=== PATIENT | male | born 1995 | race African-American/Black ===

== ENCOUNTER 2021-01-19 22:59 | Inpatient (IN) | payer OTHER ==
[~2021-01-19] VITALS: Ht 182.9 cm; Wt 99.2 kg
[2021-01-20] MEDS ORDERED: MOM 30ML SUSPENSION UDC PO PRN (00:25)
[2021-01-20] MEDS ORDERED: MAALOX 30 ML SUSP *UDC PO PRN (00:25)
[2021-01-20] MEDS ORDERED: traZODone 50 MG TAB PO PRN (00:25)
[2021-01-20] MEDS ORDERED: ACETAMINOPHEN TAB 650MG DOSE (2X325MG) PO PRN (00:25)
[2021-01-20 01:12] LABS: RSV AMPLIFICATION NEGATIVE (NEGATIVE)
[2021-01-20 05:21] VITALS: BP 135/90
[2021-01-20] MEDS ORDERED: LUNE2TAB23 PO (05:40)
[2021-01-20] MEDS ORDERED: ZOLO50TA PO (05:40)
[2021-01-20] MEDS ORDERED: ESZO1TAB4 PO (08:13)
[2021-01-20] MEDS ORDERED: HOME MED LIST COMPLETE! XX SCH (08:15)
[2021-01-20] MEDS ORDERED: PROPRANOLOL 10 MG TAB PO PRN (11:15)
[2021-01-20] MEDS: NICOTINE 14 MG/24 HR TRANSDERMAL TD PRN (11:48)
[2021-01-20] MEDS: SERTRALINE 100 MG TAB PO SCH (11:49)
[2021-01-20] MEDS: busPIRone 5 MG TAB PO SCH ×2 (11:49→21:47)
[2021-01-20] MEDS: MULTIVITAMINS/MINERALS THERAP 1 TAB PO SCH (15:50)
[2021-01-20] MEDS: FOLIC ACID 1 MG TAB PO SCH (15:51)
[2021-01-20] MEDS: THIAMINE 100 MG TAB PO SCH (15:52)
[2021-01-20 17:23] VITALS: BP 138/79
[2021-01-20] MEDS: PRAZOSIN 1 MG CAP PO SCH (21:47)
[2021-01-21 06:30] VITALS: BP 132/63
[2021-01-21] MEDS: busPIRone 5 MG TAB PO SCH ×2 (08:28→20:29)
[2021-01-21] MEDS: SERTRALINE 100 MG TAB PO SCH (08:28)
[2021-01-21] MEDS: FOLIC ACID 1 MG TAB PO SCH (08:28)
[2021-01-21] MEDS: NICOTINE 14 MG/24 HR TRANSDERMAL TD PRN (08:28)
[2021-01-21] MEDS: THIAMINE 100 MG TAB PO SCH (08:28)
[2021-01-21] MEDS: MULTIVITAMINS/MINERALS THERAP 1 TAB PO SCH (08:28)
[2021-01-21 17:28] VITALS: BP 138/84
[2021-01-21] MEDS: PRAZOSIN 1 MG CAP PO SCH (20:29)
[2021-01-22 06:47] VITALS: BP 132/83
[2021-01-22] MEDS: SERTRALINE 100 MG TAB PO SCH (08:58)
[2021-01-22] MEDS: THIAMINE 100 MG TAB PO SCH (08:58)
[2021-01-22] MEDS: MULTIVITAMINS/MINERALS THERAP 1 TAB PO SCH (08:58)
[2021-01-22] MEDS: busPIRone 5 MG TAB PO SCH ×2 (08:58→20:55)
[2021-01-22] MEDS: FOLIC ACID 1 MG TAB PO SCH (08:58)
[2021-01-22 18:34] VITALS: BP 126/79
[2021-01-22] MEDS: PRAZOSIN 1 MG CAP PO SCH (20:55)
[2021-01-23 06:30] VITALS: BP 119/58
[2021-01-23] MEDS: FOLIC ACID 1 MG TAB PO SCH (09:30)
[2021-01-23] MEDS: SERTRALINE 100 MG TAB PO SCH (09:30)
[2021-01-23] MEDS: busPIRone 5 MG TAB PO SCH ×2 (09:30→23:19)
[2021-01-23] MEDS: MULTIVITAMINS/MINERALS THERAP 1 TAB PO SCH (09:30)
[2021-01-23] MEDS: THIAMINE 100 MG TAB PO SCH (09:30)
[2021-01-23] MEDS: NICOTINE 14 MG/24 HR TRANSDERMAL TD PRN (10:24)
[2021-01-23] MEDS: NICOTINE POLACRILEX 2 MG GUM PO PRN ×2 (13:04→18:44)
[2021-01-23 16:11] VITALS: BP_SYST 117; BP_SYST 132; BP_DIAS 65; BP_DIAS 69
[2021-01-23] MEDS: PRAZOSIN 1 MG CAP PO SCH (23:21)
[2021-01-24 06:40] VITALS: BP 124/80
[2021-01-24] MEDS: FOLIC ACID 1 MG TAB PO SCH (08:19)
[2021-01-24] MEDS: SERTRALINE 100 MG TAB PO SCH (08:19)
[2021-01-24] MEDS: busPIRone 5 MG TAB PO SCH ×2 (08:19→23:05)
[2021-01-24] MEDS: THIAMINE 100 MG TAB PO SCH (08:19)
[2021-01-24] MEDS: NICOTINE POLACRILEX 2 MG GUM PO PRN ×2 (08:19→18:04)
[2021-01-24] MEDS: MULTIVITAMINS/MINERALS THERAP 1 TAB PO SCH (08:19)
[2021-01-24 16:18] VITALS: BP 130/65
[2021-01-24] MEDS: PRAZOSIN 1 MG CAP PO SCH (23:05)
[2021-01-25 06:24] VITALS: BP 125/70
[2021-01-25] MEDS: FOLIC ACID 1 MG TAB PO SCH (08:16)
[2021-01-25] MEDS: MULTIVITAMINS/MINERALS THERAP 1 TAB PO SCH (08:16)
[2021-01-25] MEDS: busPIRone 5 MG TAB PO SCH ×2 (08:16→20:38)
[2021-01-25] MEDS: SERTRALINE 100 MG TAB PO SCH (08:16)
[2021-01-25] MEDS: THIAMINE 100 MG TAB PO SCH (08:16)
[2021-01-25] MEDS: NICOTINE POLACRILEX 2 MG GUM PO PRN ×2 (11:41→20:38)
[2021-01-25 16:39] VITALS: BP 125/70
[2021-01-25] MEDS: PRAZOSIN 1 MG CAP PO SCH (20:38)
[2021-01-26 06:35] VITALS: BP 116/55
[2021-01-26] MEDS: THIAMINE 100 MG TAB PO SCH (09:47)
[2021-01-26] MEDS: busPIRone 5 MG TAB PO SCH ×2 (09:47→20:17)
[2021-01-26] MEDS: FOLIC ACID 1 MG TAB PO SCH (09:47)
[2021-01-26] MEDS: MULTIVITAMINS/MINERALS THERAP 1 TAB PO SCH (09:47)
[2021-01-26] MEDS: SERTRALINE 100 MG TAB PO SCH (09:47)
[2021-01-26] MEDS: NICOTINE POLACRILEX 2 MG GUM PO PRN ×2 (12:51→20:17)
[2021-01-26] MEDS ORDERED: BUSP5TA PO (14:28)
[2021-01-26] MEDS ORDERED: MINI1CAP PO (14:28)
[2021-01-26] MEDS ORDERED: NICO2GUM PO (14:28)
[2021-01-26] MEDS ORDERED: ZOLO100T PO (14:28)
[2021-01-26 20:18] VITALS: BP 168/100
[2021-01-26] MEDS: PRAZOSIN 1 MG CAP PO SCH (20:18)
[2021-01-26 21:07] VITALS: BP 145/81
[2021-01-27 03:48] VITALS: BP 121/75
== END 2021-01-27 04:07 | disposition other institution (70) | DRG 882 ==
LOC: M ED 22:59 → M ED INP 01-20 00:23 → M PSY 01-20 05:04
PROVIDERS: ADMIT Student in an Organized Health Care Education/Training Program; ATTEND Student in an Organized Health Care Education/Training Program
DX: F43.10 Post-traumatic stress disorder, unspecified (principal); R45.851 Suicidal ideations; F32.9 Major depressive disorder, single episode, unspecified; F10.10 Alcohol abuse, uncomplicated; F17.210 Nicotine dependence, cigarettes, uncomplicated; F60.89 Other specific personality disorders; F41.8 Other specified anxiety disorders; Z91.410 Personal history of adult physical and sexual abuse; Z91.82 Personal history of military deployment; Z20.822 Contact with and (suspected) exposure to COVID-19; Z79.899 Other long term (current) drug therapy